=== PATIENT | female | born 1945 | race Caucasian/White ===

== ENCOUNTER 2017-01-24 12:57 | Inpatient (IN) | payer MEDICARE ==
[~2017-01-24] VITALS: Ht 157.5 cm; Wt 61.1 kg
[~2017-01-24 12:57] MED LIST: /MIRT30TA PO; /TIOT18INH; ACET50TA PO; ACIP20TA PO; ADVAIR; ALBU0.084 INH; BROV15NE INH; BUDE0.5S6 INH; BUSP10TA PO; BUSP15TA; BUSP30TA PO; CART120C PO; CEFT500T PO; COLA100C2; DOXE150C7 PO; HUMARA IV; HYDR200T3 PO; LASI40TA PO; LASIX PO; MELOXICAN PO; NORC5TAB PO; PARO40TA2 PO; PAXI30TA; PAXI40TA2 PO; PLAQ200T PO; PRED10TA2 PO; PRED20TA PO; PRIMI25TA; PRIMPOW10 PO; PULM1SUS INH; RECLAST; SIMV40TA2 PO; SPIR1CAP INH; SPIRIVA INH; TOPI100T; TYLE325T5 PO; VICO5TAB; VICO5TAB16 PO; VITAD1000T PO; XANA0.25 PO; ZOCO40TA; ZOCO40TA PO; [UNRECOGNIZED DRUG - OTHER] NEB; [UNRECOGNIZED DRUG - REMARK]; plaquenil PO; proventil neb INH; reclast
[2017-01-24] MEDS ORDERED: ALBU83IN (13:13)
[2017-01-24] MEDS ORDERED: PRED10TA (13:13)
[2017-01-24] MEDS ORDERED: MAG SULF 1GM/100ML (MAG RUN) 1 GM in APPROPRIATE DILUENT 1 EA IV ONE (13:15)
[2017-01-24] MEDS ORDERED: methylPREDNISolone INJ 125 MG/2 ML VIAL (J2930) IV ONE (13:15)
[2017-01-24 13:26] LABS: ABG BASE EXCESS 3.6 (-2.0-2.0); ABG HCO3 29.1 MEQ/L (22.0-26.0); ABG PARTIAL PRESSURE O2 138.9 mmHg (75.0-100.0); ABG STANDARD HCO3 27.7 MEQ/L (22.0-26.0); ABG TOTAL CO2 30.5 MEQ/L (23.0-31.0); ABG pH (ARTERIAL) 7.409 UNITS (7.350-7.450)
[2017-01-24 13:27] LABS: BASO % 0.4 % (0.0-1.0); EOS # 0.1 K/mm3 (0.0-0.50); EOS % 0.8 % (0.0-3.0); LARGE UNSTAINED CELL # 0.1 K/mm3 (0.0-0.4); LARGE UNSTAINED CELL % 0.6 % (0.0-4.0); LYMPH # 0.6 K/mm3 (1.5-4.5); MEAN CORPUSCULAR VOLUME 90.9 fl (80.0-96.0); MONO # 0.5 K/mm3 (0.0-0.8); MONO % 3.8 % (0.0-5.0); NEUTROPHILS # 11.1 K/mm3 (1.8-7.7); NEUTROPHILS % 89.4 % (36.0-66.0); PLATELET COUNT, AUTOMATED 255 k/mm3 (150-450); RED CELL DISTRIBUTION WIDTH 13.5 % (11.5-14.5); WHITE BLOOD COUNT 12.4 K/mm3 (4.0-10.0)
[2017-01-24] MEDS: ALBUTEROL SULFATE 2.5 MG/0.5 ML INH NEB SOLN NEB PRN ×3 (13:27→13:55)
--- NOTE | 2017-01-24 13:38 | REP ---
Chest one-view HISTORY: Shortness of breath Comparison: 03/01/2015 The lungs are clear. The heart is normal in size. The pulmonary vasculature is normal in appearance. Impression: No acute disease. Signed by Jigar Garay MD 01/24/2017 01:30 P
[2017-01-24 13:48] LABS: ALBUMIN 3.2 GM/DL (3.2-5.2); ALBUMIN/GLOBULIN RATIO 0.86 (1.00-1.93); ALKALINE PHOSPHATASE 117 U/L (45-117); ALT/SGPT 40 U/L (12-78); ANION GAP 3 MEQ/L (8-16); AST/SGOT 26 U/L (15-37); BILIRUBIN,DIRECT < 0.1 MG/DL (0.0-0.2); BILIRUBIN,TOTAL 0.3 MG/DL (0.2-1.0); BLOOD UREA NITROGEN 15 MG/DL (7-18); CALCIUM LEVEL 8.8 MG/DL (8.8-10.2); CARBON DIOXIDE LEVEL 33 MEQ/L (21-32); CHLORIDE LEVEL 102 MEQ/L (98-107); CREATININE FOR GFR 0.96 MG/DL (0.55-1.02); GLOMERULAR FILTRATION RATE > 60.0 (>39); GLUCOSE, FASTING 120 MG/DL (83-110); POTASSIUM SERUM 4.2 MEQ/L (3.5-5.1); SODIUM LEVEL 138 MEQ/L (136-145); TOTAL PROTEIN 6.9 GM/DL (6.4-8.2)
[2017-01-24] MEDS: IPRATROPIUM 0.5MG/ALBUTEROL 2.5MG INH SOL UD 3ML (DUONEB)(J7620) NEB SCH ×2 (14:00→19:28)
--- NOTE | 2017-01-24 14:33 | ECGEPIP ---
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
[2017-01-24] MEDS ORDERED: ALB2.5NEB INH (15:01)
[2017-01-24] MEDS ORDERED: PRED10TA PO (15:06)
[2017-01-24] MEDS ORDERED: PARO40TA87 PO (15:07)
[2017-01-24] MEDS ORDERED: BUSP15TA47 PO (15:08)
[2017-01-24] MEDS ORDERED: ONDANSETRON 4MG/2ML VIAL (J2405) IV PRN (15:30)
[2017-01-24] MEDS ORDERED: ONDANSETRON 4 MG TAB (S0181) PO PRN (15:30)
--- NOTE | 2017-01-24 15:46 | HPEPDOC ---
Medical History and Physical Date of Admission Jan 24, 2017 at 15:25 History and Physical HISTORY AND PHYSICAL Date of admission: 01/24/2017 PCP: Dr. Duarte Chief complaint: Cough and shortness of breath HPI: 70-year-old female with COPD on 2 L home O2, rheumatoid arthritis, depression, hyperlipidemia who presented to the emergency department secondary to several days of cough and increased shortness of breath. She states she is usually on 2 L of oxygen at home, but when she started feeling short of breath, she increased to 4 L, but this did not help. She also states that she used her nebulizers at home, which helped a little. She denies any recent upper respiratory illnesses. She states that as the days progressed, she was able to be less and less active secondary to shortness of breath, so she thought she should come to the ED. She has not seen her primary physician recently. Past medical history: COPD on 2 L home O2, rheumatoid arthritis, depression, hyperlipidemia Past surgical history: Hysterectomy, 2, shoulder surgery for disc disease in her neck, cerebral aneurysm repair Family history: CHF, diabetes mellitus type 2 Social history: The patient denies any alcohol or drug use. She currently lives with her sister. She continues to smoke half a pack per day, states that although she has tried Chantix and spoken with many physicians, she has been unable to quit. I did spend greater than 3 minutes discussing smoking cessation , including the risks of continuing to do so and the benefits of quitting, as well as possible avenues to do so. Allergies: Latex, oxycodone Review of systems: General: Positive for chills, negative for fever Eyes: Negative for vision changes and ocular discharge ENT: Positive for sore throat, negative for nosebleed Cardiovascular: Negative for chest pain and palpitations Respiratory: Positive for cough, shortness of breath, wheezing GI: Negative for nausea, vomiting, diarrhea, constipation Musculoskeletal: Positive for neck and back pain Skin: Negative for rash Neuro: Positive for headache, negative for dizziness. The patient reports numbness and tingling in an ulnar distribution on her right hand that has been present for several months. Psych: Negative for depression and suicidal ideation Endocrine: Positive for polyuria : Negative for dysuria Heme: Negative for bleeding Home meds: See below Physical exam: Vital signs: Vital Sign - Last 24 Hours 01/24/17 01/24/17 01/24/1701/24/17 12:58 13:00 13:36 13:48 Temp 97.8 Pulse 126 100 Resp 22 B/P (MAP) 117/69 (85) 172/84 (113) Pulse Ox 87 O2 Delivery Nasal Cannula O2 Flow Rate 2.0 01/24/17 01/24/17 01/24/17 01/24/17 13:48 13:50 14:27 14:42 Pulse 111 110 111 110 Resp 36 36 B/P (MAP) 118/63 (81) Pulse Ox 96 94 94 O2 Delivery Venturi Mask Venturi Mask Venturi Mask O2 Flow Rate 15.0 12.0 12.0 FiO2 60 35 35 Gen.: awake, alert, no acute distress Eyes: Extraocular movements intact, normal sclera ENT: Moist mucous membranes Cardiovascular: tachycardic but regular rhythm Lungs: diffuse rhonchi in all lung argueta with prolonged expiration and use of accessory muscles Abdomen: Soft, NT/ND, normal BS Musculoskeletal: normal range of motion Extremities: No peripheral edema Neuro: alert and oriented 3, normal speech, no focal deficits Psych: Normal mood with congruent affect Labs and radiology: See below WBC 12.4 CMP, troponin, BNP, ABG, chest x-ray are all unremarkable Assessment and plan: 70-year-old female with COPD on 2 L home O2, rheumatoid arthritis, depression, hyperlipidemia who presented to the emergency department secondary to several days of cough and increased shortness of breath and is admitted with acute on chronic hypoxic respiratory failure secondary to a COPD exacerbation. 1. Acute on chronic hypoxic respiratory failure: The patient usually uses 2 L of oxygen at home, but she is currently requiring 12 L Ventimask. We will continue to supplement oxygen and to treat the underlying cause. 2. COPD exacerbation: We'll start the patient on Solu-Medrol, Levaquin, and scheduled and as needed DuoNeb's. We'll continue her home Pulmicort and hold her home prednisone. We did not have Brovana on formulary, so we'll substitute Perforomist for her home Brovana. 3. Tobacco abuse: The patient and I spent greater than 3 minutes discussing tobacco cessation. At the moment, she continues to smoke at least half a pack per day. 4. Rheumatoid arthritis: Since the patient is on Solu-Medrol for COPD exacerbation, we will hold her home prednisone. 5. Depression: Continue home Paxil and BuSpar. 6. Hyperlipidemia: Continue home statin. DVT prophylaxis: Lovenox Dispo: admit as an inpatient on the service of Dr. Vazquez CODE STATUS: Full code Vital Signs Vital Signs Date Time Temp Pulse Resp B/P (MAP) Pulse Ox O2 Delivery O2 Flow Rate FiO2 01/24/17 14:42 110 36 94 Venturi Mask 12.0 35 01/24/17 13:50 118/63 (81) 01/24/17 12:58 97.8 Laboratory Data Labs 24H Laboratory Tests 2 01/24/17 13:12: White Blood Count 12.4H, Red Blood Count 4.70, Hemoglobin 14.1, Hematocrit 42.7 , Mean Corpuscular Volume 90.9, Mean Corpuscular Hemoglobin 30.0, Mean Corpuscular Hemoglobin Concent 33.0, Red Cell Distribution Width 13.5, Platelet Count 255, Neutrophils (%) (Auto) 89.4H, Lymphocytes (%) (Auto) 5.0L, Monocytes (%) (Auto) 3.8, Eosinophils (%) (Auto) 0.8, Basophils (%) (Auto) 0.4, Neutrophils # (Auto) 11.1H, Lymphocytes # (Auto) 0.6L, Monocytes # (Auto) 0.5, Eosinophils # (Auto) 0.1, Basophils # (Auto) 0.0, Large Unclassified Cells % 0.6 , Large Unclassified Cells # 0.1, Anion Gap 3L, Glomerular Filtration Rate > 60.0, Calcium Level 8.8, Aspartate Amino Transf (AST/SGOT) 26, Alanine Aminotransferase (ALT/SGPT) 40, Alkaline Phosphatase 117, Total Bilirubin 0.3, Direct Bilirubin < 0.1, Total Creatine Kinase 103, Creatine Kinase MB 2.7, Creatine Kinase MB Relative Index 2.62, Troponin I < 0.02, B-Type Natriuretic Peptide 18.2, Total Protein 6.9, Albumin 3.2, Albumin/Globulin Ratio 0.86L 01/24/17 13:22: Blood Gas Bicarbonate Standard 27.7H, Arterial Blood pH 7.409, Arterial Blood Partial Pressure CO2 47.0H, Arterial Blood Partial Pressure O2 138.9H, Arterial Blood Total CO2 30.5, Arterial Blood HCO3 29.1H, Arterial Blood Base Excess 3.6H , Arterial Blood Oxygen Saturation 98.8 CBC/BMP Laboratory Tests 01/24/17 13:12 Red Blood Count 4.70, Mean Corpuscular Volume 90.9, Mean Corpuscular Hemoglobin 30.0, Mean Corpuscular Hemoglobin Concent 33.0, Red Cell Distribution Width 13.5 , Neutrophils (%) (Auto) 89.4 H, Lymphocytes (%) (Auto) 5.0 L, Monocytes (%) ( Auto) 3.8, Eosinophils (%) (Auto) 0.8, Basophils (%) (Auto) 0.4, Neutrophils # ( Auto) 11.1 H, Lymphocytes # (Auto) 0.6 L, Monocytes # (Auto) 0.5, Eosinophils # (Auto) 0.1, Basophils # (Auto) 0.0 Home Medications Scheduled Arformoterol Tartrate (Brovana) 15 Mcg/2 Ml Neb, 15 MCG INH BID MIX WITH BUDESONIDE Budesonide (Budesonide) 0.5 Mg/2 Ml Neb, 0.5 MG INH BID MIX WITH BROVANA Buspirone HCl (Buspirone HCl) 15 Mg Tab, 15 MG PO BID Diltiazem HCl (Cartia Xt) 120 Mg Cap, 120 MG PO DAILY Furosemide (Lasix) 40 Mg Tab, 40 MG PO Q3RD Paroxetine Hydrochloride (Paroxetine) 40 Mg Tab, 40 MG PO DAILY Prednisone (Prednisone) 10 Mg Tab, 10 MG PO DAILY Simvastatin - High Dose (Simvastatin) 40 Mg Tab, 40 MG PO QHS Scheduled PRN Acetaminophen (Tylenol) 325 Mg Tab, 650 MG PO Q4H PRN for PAIN Albuterol Sulfate (Albuterol Sulfate) 2.5 Mg/0.5 Ml Neb, 2.5 MG INH Q2H PRN for SHORTNESS OF BREATH Allergies Coded Allergies: Latex (Verified Allergy, Mild, RASH, 12/12/12) Oxycodone (Verified Allergy, Mild, RASH, 12/12/12) DAVID EDMONDS Jan 24, 2017 15:46
[2017-01-24] MEDS: IPRATROPIUM 0.5MG/ALBUTEROL 2.5MG INH SOL UD 3ML (DUONEB)(J7620) NEB PRN ×2 (16:34→21:47)
[2017-01-24] MEDS: methylPREDNISolone INJ 125 MG/2 ML VIAL (J2930) IV SCH ×2 (16:45→23:31)
[2017-01-24] MEDS: LevoFLOXacin IV 750 MG in APPROPRIATE DILUENT 1 EA IV SCH (16:45)
[2017-01-24] MEDS: ENOXAPARIN 40 MG/0.4 ML SYRINGE (J1650) SC SCH (18:54)
[2017-01-24] MEDS: BUDESONIDE 0.5 MG/2 ML INHALATION SUSPENSION INH SCH ×2 (19:29→21:48)
[2017-01-24] MEDS: FORMOTEROL FUMARATE 20 MCG/2 ML INHALATION SOLUTION (PERFOROMIST) INH SCH (19:29)
[2017-01-24 19:40] VITALS: BP 136/62
[2017-01-24] MEDS: busPIRone 5 MG TAB PO SCH (20:26)
[2017-01-24] MEDS: SIMVASTATIN 40 MG TAB PO SCH (20:26)
[2017-01-24 20:55] VITALS: BP 138/66
[2017-01-24] MEDS: ACETAMINOPHEN TAB 650MG DOSE (2X325MG) PO PRN (23:31)
[2017-01-25] VITALS (10 sets, daily range): BP systolic 120–151; BP diastolic 60–83; O2SAT 93
[2017-01-25] MEDS: IPRATROPIUM 0.5MG/ALBUTEROL 2.5MG INH SOL UD 3ML (DUONEB)(J7620) NEB SCH ×4 (02:11→19:30)
[2017-01-25 05:33] LABS: BASO % 0.1 % (0.0-1.0); EOS % 0.1 % (0.0-3.0); LARGE UNSTAINED CELL # 0.1 K/mm3 (0.0-0.4); LARGE UNSTAINED CELL % 0.8 % (0.0-4.0); LYMPH # 0.4 K/mm3 (1.5-4.5); LYMPH % 4.7 % (24.0-44.0); MEAN CORPUSCULAR HEMOGLOBIN 30.1 pg (27.0-33.0); MEAN CORPUSCULAR HGB CONC 32.8 g/dl (32.0-36.5); MEAN CORPUSCULAR VOLUME 91.7 fl (80.0-96.0); MONO # 0.3 K/mm3 (0.0-0.8); MONO % 3.4 % (0.0-5.0); NEUTROPHILS # 7.3 K/mm3 (1.8-7.7); NEUTROPHILS % 90.9 % (36.0-66.0); PLATELET COUNT, AUTOMATED 235 k/mm3 (150-450); RED CELL DISTRIBUTION WIDTH 13.7 % (11.5-14.5)
[2017-01-25 05:46] LABS: CALCIUM LEVEL 8.5 MG/DL (8.8-10.2); CREATININE FOR GFR 1.04 MG/DL (0.55-1.02); GLOMERULAR FILTRATION RATE 55.6 (>39); MAGNESIUM LEVEL 2.6 MG/DL (1.8-2.4); POTASSIUM SERUM 4.2 MEQ/L (3.5-5.1)
[2017-01-25] MEDS: BUDESONIDE 0.5 MG/2 ML INHALATION SUSPENSION INH SCH ×2 (07:31→19:29)
[2017-01-25] MEDS: FORMOTEROL FUMARATE 20 MCG/2 ML INHALATION SOLUTION (PERFOROMIST) INH SCH ×2 (07:31→19:29)
[2017-01-25] MEDS: methylPREDNISolone INJ 125 MG/2 ML VIAL (J2930) IV SCH (08:09)
--- NOTE | 2017-01-25 08:30 | ECGEPIP ---
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
[2017-01-25] MEDS ORDERED: FUROSEMIDE 40 MG TAB PO SCH (09:00)
[2017-01-25] MEDS: PARoxetine 20 MG TAB PO SCH (09:50)
[2017-01-25] MEDS: busPIRone 5 MG TAB PO SCH ×2 (09:52→19:57)
[2017-01-25] MEDS: IPRATROPIUM 0.5MG/ALBUTEROL 2.5MG INH SOL UD 3ML (DUONEB)(J7620) NEB PRN (11:56)
[2017-01-25] MEDS: ACETAMINOPHEN TAB 650MG DOSE (2X325MG) PO PRN ×2 (13:41→18:25)
--- NOTE | 2017-01-25 14:26 | IPNPDOC ---
Subjective Date Seen The patient was seen on 01/25/17. Subjective Chief Complaint/HPI The patient is a 71-year-old female admitted with a reason for visit of Copd Exaceration. General: Denies: Chills, Night Sweats Constitutional: Denies: Chills, Fever Eyes: Denies: Pain, Vision change ENT: Denies: Head Aches, Ear Pain Skin: Denies: Rash, Lesions Pulmonary: Reports: Dyspnea, Cough Cardiovascular: Denies: Chest Pain, Palpitations Gastrointestinal: Denies: Nausea, Vomiting, Abdominal Pain Genitourinary: Denies: Dysuria, Frequency Hematologic: Denies: Bruising, Bleeding Excessively Objective Physical Examination General Exam: Positive: Alert, Cooperative, No Acute Distress ENT Exam: Positive: Atraumatic, Mucous membr. moist/pink Neck Exam: Negative: JVD Chest Exam: Positive: Clear to auscultation, Normal air movement Heart Exam: Positive: Tachycardic, Normal S1, Normal S2 Abdomen Exam: Positive: Soft, Negative: Tenderness Extremity Exam: Negative: Tenderness, Swelling Psych Exam: Positive: Oriented x 3 Assessment /Plan Plan/VTE VTE Prophylaxis Ordered?: Yes Plan COPD exacerbation CXR with no acute findings Cont IV Solumedrol--we will down taper this today, and transition to PO Steroids tomorrow pending clinical improvement Respiratory Panel pending Cont LevBaudilio ayalab's prn Cont Pulmicort, Perforomist We will continue to monitor respiratory status at this time Acute on Chronic Hypoxic Respiratory Failure 2/2 Above Supplemental Oxygen down-titrated from 12L via Venti Mask to 2L via Nasal Cannula (Which is her baseline) We will continue to monitor her respiratory status Tobacco abuse Continues to smoke at least half a pack per day. Counseled on cessation Rheumatoid arthritis Home dose of prednisone as she is currently on IV Solumedrol Depression Continue home Paxil and BuSpar. Hyperlipidemia Continue home statin. DVT prophylaxis Lovenox SC Dispo-anticipate discharge in the next 24-48 hours pending clinical improvement. VS, I&O, 24H, Fishbone Vital Signs/I&O Vital Signs Date Time Temp Pulse Resp B/P (MAP) Pulse Ox O2 Delivery O2 Flow Rate FiO2 01/25/17 13:50 Nasal Cannula 2.0 01/25/17 13:01 32 93 01/25/17 12:00 97.9 116 142/83 (102) 01/25/17 02:02 35 I&O- Last 24 Hours up to 6 AM 01/25/17 06:00 Intake Total 200 ml Output Total 150 ml Balance 50 ml Laboratory Data 24H LABS Laboratory Tests 2 01/25/17 04:12: White Blood Count 8.0, Red Blood Count 4.10, Hemoglobin 12.4, Hematocrit 37.6, Mean Corpuscular Volume 91.7, Mean Corpuscular Hemoglobin 30.1, Mean Corpuscular Hemoglobin Concent 32.8, Red Cell Distribution Width 13.7, Platelet Count 235, Neutrophils (%) (Auto) 90.9H, Lymphocytes (%) (Auto) 4.7L, Monocytes (%) (Auto) 3.4, Eosinophils (%) (Auto) 0.1, Basophils (%) (Auto) 0.1, Neutrophils # (Auto) 7.3, Lymphocytes # (Auto) 0.4L, Monocytes # (Auto) 0.3, Eosinophils # (Auto) 0.0, Basophils # (Auto) 0.0, Large Unclassified Cells % 0.8 , Large Unclassified Cells # 0.1, Anion Gap 7L, Glomerular Filtration Rate 55.6 , Blood Urea Nitrogen 17, Creatinine 1.04H, Sodium Level 139, Potassium Level 4.2, Chloride Level 102, Carbon Dioxide Level 30, Calcium Level 8.5L, Magnesium Level 2.6H CBC/BMP Laboratory Tests 01/25/17 04:12 Red Blood Count 4.10, Mean Corpuscular Volume 91.7, Mean Corpuscular Hemoglobin 30.1, Mean Corpuscular Hemoglobin Concent 32.8, Red Cell Distribution Width 13.7 , Neutrophils (%) (Auto) 90.9 H, Lymphocytes (%) (Auto) 4.7 L, Monocytes (%) ( Auto) 3.4, Eosinophils (%) (Auto) 0.1, Basophils (%) (Auto) 0.1, Neutrophils # ( Auto) 7.3, Lymphocytes # (Auto) 0.4 L, Monocytes # (Auto) 0.3, Eosinophils # ( Auto) 0.0, Basophils # (Auto) 0.0, Calcium Level 8.5 L BETSY SHEETS MD Jan 25, 2017 14:26
[2017-01-25] MEDS: ENOXAPARIN 40 MG/0.4 ML SYRINGE (J1650) SC SCH (18:25)
[2017-01-25] MEDS: LevoFLOXacin IV 750 MG in APPROPRIATE DILUENT 1 EA IV SCH (18:46)
[2017-01-25] MEDS: methylPREDNISolone INJ 40 MG/1 ML VIAL (J2920) IV SCH (19:57)
[2017-01-25] MEDS: SIMVASTATIN 40 MG TAB PO SCH (19:58)
[2017-01-25] MEDS ORDERED: IPRATROPIUM 0.02% SOLN 0.5MG/2.5 ML NEB INH PRN (23:30)
[2017-01-25] MEDS ORDERED: LEVALBUTEROL 1.25 MG/0.5 ML CONCENTRATE NEB INH PRN (23:30)
[2017-01-26 06:00] VITALS: BP 115/69
[2017-01-26 06:17] LABS: BASO % 0.1 % (0.0-1.0); EOS % 0.1 % (0.0-3.0); LARGE UNSTAINED CELL # 0.1 K/mm3 (0.0-0.4); LARGE UNSTAINED CELL % 0.3 % (0.0-4.0); LYMPH # 0.7 K/mm3 (1.5-4.5); LYMPH % 3.8 % (24.0-44.0); MEAN CORPUSCULAR HEMOGLOBIN 29.7 pg (27.0-33.0); MEAN CORPUSCULAR HGB CONC 33.1 g/dl (32.0-36.5); MEAN CORPUSCULAR VOLUME 89.7 fl (80.0-96.0); MONO # 0.8 K/mm3 (0.0-0.8); MONO % 4.8 % (0.0-5.0); NEUTROPHILS # 14.7 K/mm3 (1.8-7.7); NEUTROPHILS % 90.9 % (36.0-66.0); PLATELET COUNT, AUTOMATED 273 k/mm3 (150-450); RED CELL DISTRIBUTION WIDTH 13.7 % (11.5-14.5); WHITE BLOOD COUNT 16.1 K/mm3 (4.0-10.0)
[2017-01-26 06:32] LABS: CALCIUM LEVEL 8.3 MG/DL (8.8-10.2); CREATININE FOR GFR 1.14 MG/DL (0.55-1.02); MAGNESIUM LEVEL 2.4 MG/DL (1.8-2.4); POTASSIUM SERUM 4.3 MEQ/L (3.5-5.1)
[2017-01-26] MEDS: LEVALBUTEROL 1.25 MG/0.5 ML CONCENTRATE NEB INH SCH ×2 (07:26→11:25)
[2017-01-26] MEDS: FORMOTEROL FUMARATE 20 MCG/2 ML INHALATION SOLUTION (PERFOROMIST) INH SCH (07:26)
[2017-01-26] MEDS: BUDESONIDE 0.5 MG/2 ML INHALATION SUSPENSION INH SCH (07:26)
[2017-01-26] MEDS: IPRATROPIUM 0.02% SOLN 0.5MG/2.5 ML NEB INH SCH ×2 (07:26→11:25)
[2017-01-26] MEDS: methylPREDNISolone INJ 40 MG/1 ML VIAL (J2920) IV SCH (08:06)
[2017-01-26 08:07] VITALS: BP 126/71
[2017-01-26] MEDS: busPIRone 5 MG TAB PO SCH (08:07)
[2017-01-26] MEDS: PARoxetine 20 MG TAB PO SCH (08:07)
[2017-01-26] MEDS ORDERED: PRED10TA PO (10:12)
[2017-01-26] MEDS ORDERED: MOXI1TAB PO (10:34)
--- NOTE | 2017-01-26 12:40 | DSES ---
DATE OF ADMISSION: 01/24/2017 DATE OF DISCHARGE: SPECIALISTS INVOLVED IN CARE: None. COMPLICATIONS DURING STAY: None. PROCEDURES PERFORMED DURING STAY: None. DISCHARGE DIAGNOSES: 1. Chronic obstructive pulmonary disease (COPD) exacerbation. 2. Acute on chronic hypoxic respiratory failure. 3. Tobacco use. 4. Rheumatoid arthritis. 5. Depression. 6. Hyperlipidemia. SUMMARY OF HOSPITALIZATION: This is a 70-year-old with a history of COPD on 2 liters of home oxygen, history of rheumatoid arthritis, depression, hyperlipidemia, who presented to the emergency department secondary to several days of cough, increased shortness of breath. Chronically on 2 liters of oxygen at home, increased that to 4 and has been less active due to shortness of breath. She came to visit the emergency department and was admitted to the hospitalist service. She was treated with supplemental oxygen. She was requiring much more than baseline. Steroids and aggressive pulmonary toilet. She did well during her stay. She improved rapidly and had returned to her baseline. She was treated with empiric antibiotics, although respiratory panel was negative and no sputum was obtained. On the day of discharge, she was feeling well. She is tolerating a diet. She still has a cough, but is feeling much better. Temperature is 97, pulse 100, respiratory rate 20, blood pressure 126/71, 93% on 2 liters. Input and output notable for a negative fluid balance of -1130. She is awake and alert. Breathing is symmetrical. I:E ratio is 1:3. No wheezes. Breathing is symmetrical and rested. Speaking in complete sentences. No accessory muscle use. CARDIAC: Normal S1, S2. Tachycardic on my examination. ABDOMEN: Soft, doughy, nontender. White cell count 16.1, presumably related to steroids, BUN 29, creatinine 1.14, slightly above her baseline. Chest x-ray during her stay showed no acute disease. DISCHARGE INSTRUCTIONS: Include the following: Followup with Dr. Farris on 02/05/2017 at 1:15 p.m. Diet and activity as tolerated. Continue with: - moxifloxacin 400 mg by mouth daily for five tablets. She had been on Levaquin as an inpatient but this is not covered by her insurance as an outpatient. - prednisone tapering dose, written over the course of 8 days and to taper down to her home dose of prednisone thereafter. - Tylenol as needed every 4 hours for pain - albuterol every 2 hours as needed for shortness of breath - Brovana twice a day - budesonide twice a day - BuSpar 15 mg by mouth twice a day - diltiazem XT 120 mg by mouth daily - Lasix 40 mg by mouth every third day - Paxil 40 mg by mouth daily - prednisone 10 mg by mouth daily - simvastatin 40 mg by mouth daily at bedtime I did write for her home dose and the tapering dose concurrently so that she will be able to continue her home dose at the end of the taper without complication. It would be reasonable to pursue outpatient BMP with results to Dr. Farris. That could be done on 01/28/2017.
--- NOTE | 2017-01-26 16:11 | ECGEPIP ---
Stationary ECG Study 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
== END 2017-01-26 13:17 | disposition home or self-care (01) | DRG 189 ==
LOC: M ED 13:32 → M ED INP 15:25 → M PCU 20:47 → M MSPAV 01-25 13:14
PROVIDERS: ADMIT Hospitalist; ATTEND Internal Medicine
DX: J96.21 Acute and chronic respiratory failure with hypoxia (principal); J44.1 Chronic obstructive pulmonary disease with (acute) exacerbation; F17.200 Nicotine dependence, unspecified, uncomplicated; E78.5 Hyperlipidemia, unspecified; F32.9 Major depressive disorder, single episode, unspecified; M06.9 Rheumatoid arthritis, unspecified; Z79.899 Other long term (current) drug therapy; Z88.5 Allergy status to narcotic agent; Z91.040 Latex allergy status

== ENCOUNTER → 2017-03-24 | Outpatient (REF) | payer MEDICARE ==
[~2017-03-24] MED LIST changes: +ALB2.5NEB INH; +ALBU83IN; +ALPR0.25 PO; +AVEL1TAB3 PO; +BUSP15TA47 PO; +MOXI1TAB PO; +PARO40TA3 PO; +PRED10TA2; +VARE1TA PO
[2017-03-24 15:58] LABS: MEAN CORPUSCULAR HEMOGLOBIN 30.6 pg (27.0-33.0); MEAN CORPUSCULAR HGB CONC 33.8 g/dl (32.0-36.5); MEAN CORPUSCULAR VOLUME 90.5 fl (80.0-96.0); RED CELL DISTRIBUTION WIDTH 13.5 % (11.5-14.5); WHITE BLOOD COUNT 14.1 K/mm3 (4.0-10.0)
[2017-03-24 16:09] LABS: ALBUMIN 3.5 GM/DL (3.2-5.2); ALBUMIN/GLOBULIN RATIO 1.21 (1.00-1.93); BILIRUBIN,TOTAL 0.4 MG/DL (0.2-1.0); CREATININE FOR GFR 1.02 MG/DL (0.55-1.02); GLOMERULAR FILTRATION RATE 56.9 (>39); MAGNESIUM LEVEL 2.2 MG/DL (1.8-2.4); POTASSIUM SERUM 4.7 MEQ/L (3.5-5.1); TOTAL PROTEIN 6.4 GM/DL (6.4-8.2)
== END ==
LOC: M SFHCPLAZ 12:50
PROVIDERS: ATTEND Internal Medicine
DX: J44.9 Chronic obstructive pulmonary disease, unspecified (principal); I27.81 Cor pulmonale (chronic); E78.00 Pure hypercholesterolemia, unspecified

== ENCOUNTER 2017-04-14 08:38 | Day surgery (SDC) | payer MEDICARE ==
[~2017-04-14] VITALS: Ht 162.6 cm; Wt 66.7 kg
[~2017-04-14 08:38] MED LIST changes: -AVEL1TAB3 PO; +BSS with VANC/TOB/EPI for EYE CASES IR ONE; +CYCLOPENTOLATE 2% OPHTH SOLN 2ML BTL OD ONE; +HEALON DUET (HEALON 10MG/ML 0.55ML & HEALON ENDOCOAT 30MG/ML 0.85ML) As Ordered ONE; +LIDOCAINE 1% SDV 5 ML VIAL As Ordered ONE; +LIDOCAINE 3.5 % 1ML OPHTH TOPICAL GEL OU ONE; +OFLOXACIN 0.3 % (OCUFLOX) OPTH SOL 5ML OD ONE; +PHENYLEPHRINE 2.5% OPHTH SOL 2ML OD ONE; +POVIDONE-IODINE 5% OPHTH PREP SOL 30ML As Ordered ONE; +TRIAMCINOLONE PRES FR 40 MG/ML 1ML(TRIESENCE)(OR EYE ONLY)(J3300 PER 1MG) As Ordered ONE; +TROPICAMIDE 1% OPHTH SOLN 2ML OD ONE
[2017-04-14] MEDS ORDERED: LR 500 ML IV ONE (09:00)
[2017-04-14] MEDS ORDERED: LIDOCAINE 1% SDV 5 ML VIAL SQ ONE (09:00)
[2017-04-14] MEDS ORDERED: MIDAZOLAM INJ 2 MG/2 ML VIAL (J2250) As Ordered ONE (09:32)
[2017-04-14] MEDS ORDERED: fentaNYL 100 MCG/2 ML INJECTION (J3010) As Ordered ONE (09:32)
[2017-04-14] MEDS ORDERED: CEFUROXIME 1MG/0.1ML INTRACAMERAL INJ As Ordered ONE (09:41)
[2017-04-14] MEDS ORDERED: TETRACAINE 0.5% OPHTH SOLN 4ML As Ordered ONE (09:54)
[2017-04-14 10:30] VITALS: BP 128/71
== END 2017-04-14 10:48 | disposition home or self-care (01) ==
LOC: M SDC 08:38
PROVIDERS: ATTEND Ophthalmology
DX: H25.9 Unspecified age-related cataract (principal); I10 Essential (primary) hypertension; E78.5 Hyperlipidemia, unspecified; F41.9 Anxiety disorder, unspecified; F32.9 Major depressive disorder, single episode, unspecified; J44.9 Chronic obstructive pulmonary disease, unspecified; Z99.81 Dependence on supplemental oxygen; Z87.891 Personal history of nicotine dependence; Z91.040 Latex allergy status; Z88.5 Allergy status to narcotic agent
CPT/HCPCS: 66984; 67515; J2250; J3010; J3300; V2632

== ENCOUNTER 2017-04-19 13:59 | Emergency (ER) | payer MEDICARE ==
[~2017-04-19] VITALS: Ht 157.5 cm; Wt 62.3 kg
[~2017-04-19 13:59] MED LIST changes: -BSS with VANC/TOB/EPI for EYE CASES IR ONE; -CYCLOPENTOLATE 2% OPHTH SOLN 2ML BTL OD ONE; -HEALON DUET (HEALON 10MG/ML 0.55ML & HEALON ENDOCOAT 30MG/ML 0.85ML) As Ordered ONE; -LIDOCAINE 1% SDV 5 ML VIAL As Ordered ONE; -LIDOCAINE 3.5 % 1ML OPHTH TOPICAL GEL OU ONE; -OFLOXACIN 0.3 % (OCUFLOX) OPTH SOL 5ML OD ONE; -PHENYLEPHRINE 2.5% OPHTH SOL 2ML OD ONE; -POVIDONE-IODINE 5% OPHTH PREP SOL 30ML As Ordered ONE; -TRIAMCINOLONE PRES FR 40 MG/ML 1ML(TRIESENCE)(OR EYE ONLY)(J3300 PER 1MG) As Ordered ONE; -TROPICAMIDE 1% OPHTH SOLN 2ML OD ONE
[2017-04-19] MEDS ORDERED: methylPREDNISolone INJ 125 MG/2 ML VIAL (J2930) IV ONE (15:30)
[2017-04-19] MEDS ORDERED: ALBUTEROL SULFATE 2.5 MG/0.5 ML INH NEB SOLN INH ONE (15:30)
[2017-04-19] MEDS ORDERED: IPRATROPIUM 0.5MG/ALBUTEROL 2.5MG INH SOL UD 3ML (DUONEB)(J7620) NEB ONE ×2 (15:30→17:15)
[2017-04-19 15:52] LABS: BASO % 0.3 % (0.0-1.0); EOS # 0.1 K/mm3 (0.0-0.50); EOS % 0.4 % (0.0-3.0); LARGE UNSTAINED CELL # 0.1 K/mm3 (0.0-0.4); LARGE UNSTAINED CELL % 0.7 % (0.0-4.0); LYMPH # 1.1 K/mm3 (1.5-4.5); LYMPH % 6.2 % (24.0-44.0); MEAN CORPUSCULAR HEMOGLOBIN 29.7 pg (27.0-33.0); MEAN CORPUSCULAR VOLUME 90.2 fl (80.0-96.0); MONO # 0.7 K/mm3 (0.0-0.8); MONO % 4.4 % (0.0-5.0); NEUTROPHILS # 13.5 K/mm3 (1.8-7.7); PLATELET COUNT, AUTOMATED 307 k/mm3 (150-450); RED CELL DISTRIBUTION WIDTH 13.4 % (11.5-14.5); WHITE BLOOD COUNT 15.3 K/mm3 (4.0-10.0)
[2017-04-19 15:59] LABS: INR 0.96
[2017-04-19 16:05] LABS: ALBUMIN 3.1 GM/DL (3.2-5.2); ALBUMIN/GLOBULIN RATIO 0.89 (1.00-1.93); ALKALINE PHOSPHATASE 84 U/L (45-117); ALT/SGPT 26 U/L (12-78); ANION GAP 2 MEQ/L (8-16); AST/SGOT 12 U/L (15-37); BILIRUBIN,DIRECT < 0.1 MG/DL (0.0-0.2); BILIRUBIN,TOTAL 0.3 MG/DL (0.2-1.0); BLOOD UREA NITROGEN 26 MG/DL (7-18); CALCIUM LEVEL 8.9 MG/DL (8.8-10.2); CARBON DIOXIDE LEVEL 37 MEQ/L (21-32); CHLORIDE LEVEL 99 MEQ/L (98-107); CREATININE FOR GFR 1.11 MG/DL (0.55-1.02); GLOMERULAR FILTRATION RATE 51.4 (>39); GLUCOSE, FASTING 107 MG/DL (83-110); POTASSIUM SERUM 4.8 MEQ/L (3.5-5.1); SODIUM LEVEL 138 MEQ/L (136-145); THYROXINE (T4) 7.1 UG/DL (4.5-12.0); TOTAL PROTEIN 6.6 GM/DL (6.4-8.2)
[2017-04-19 16:06] LABS: ABG BASE EXCESS 6.6 (-2.0-2.0); ABG HCO3 33.5 MEQ/L (22.0-26.0); ABG PARTIAL PRESSURE CO2 57.3 mmHg (35.0-45.0); ABG PARTIAL PRESSURE O2 90.1 mmHg (75.0-100.0); ABG STANDARD HCO3 30.5 MEQ/L (22.0-26.0); ABG TOTAL CO2 35.3 MEQ/L (23.0-31.0); ABG pH (ARTERIAL) 7.385 UNITS (7.350-7.450)
--- NOTE | 2017-04-19 16:41 | REP ---
Portable chest x-ray: Single view. History: Shortness of breath. Comparison study: 01/24/2017. Findings: EKG monitoring electrode is seen. The patient is status post ventral discectomy and cervical spine fusion plating. The lungs are somewhat hyperinflated but free of infiltrate. Pleural angles are sharp. Heart size is normal. Pulmonary vasculature is not increased. Impression: Hyperinflation. Otherwise no active disease. Status post cervical spine fusion plating. Signed by Deep Velasquez MD 04/19/2017 06:39 P
[2017-04-19] MEDS ORDERED: KETOROLAC 30 MG/ML VIAL (J1885) IV ONE (17:00)
[2017-04-19] MEDS ORDERED: ISOVUE-370 76% 100ML VIAL (Q9967) As Ordered ONE (17:02)
[2017-04-19] MEDS ORDERED: PRED20TA PO (17:43)
[2017-04-19] MEDS ORDERED: AVEL1TAB3 PO (17:44)
[2017-04-19] MEDS ORDERED: MOXIFLOXACIN 400 MG TAB PO ONE (17:45)
--- NOTE | 2017-04-19 17:55 | REP ---
CT pulmonary angiogram: With IV contrast. History: Left sided pleuritic chest pain. Comparison studies: Comparison chest x-ray is from this date. Comparison chest CT done without contrast is from February 20, 2015. Contrast dose: 75 cc's of Isovue [address] technique: Helical scanning is acquired and overlapping 1.5 mm and contiguous 3 mm axial images are reformatted. In addition, a 3-D work station is deployed to generate thick slab maximum intensity projection images in sagittal and coronal imaging projections. CT pulmonary angiographic findings: There is good opacification of the pulmonary arterial tree. There is no CT evidence of pulmonary embolism. The thoracic aorta enhances homogeneously and is normal in course and caliber. The maximum intensity projection images demonstrate no evidence of vessel cutoff or filling defect to suggest a pulmonary arterial thrombus. The patient is status post vertebroplasty in the mid thoracic spine and lower cervical spine fusion plating. No hilar or mediastinal mass or adenopathy is seen. No pleural or pericardial effusion is appreciated. No adrenal lesion is seen. There are granulomatous calcifications in the spleen. Lung window settings show granulomatous calcification in the right upper lobe posteriorly. There are emphysematous changes in the lower lobes and upper lobes bilaterally consistent with COPD. No pulmonary nodule or mass lesion is seen. There is evidence of bronchiectasis in the right lower lobe with some inspissated endobronchial secretions. There are multiple old healed left-sided posterior rib fractures and scattered anterior right-sided rib fractures are seen. Impression: 1. No CT evidence of pulmonary embolism. 2. Thoracic aorta shows some atherosclerotic change, but is otherwise unremarkable. 3. Evidence of COPD. 4. Bronchiectasis in the right lower lobe with some inspissated endobronchial secretions. Signed by Deep Velasquez MD 04/19/2017 06:40 P
[2017-04-19 18:01] VITALS: BP 122/68
--- NOTE | 2017-04-20 09:37 | ECGEPIP ---
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
== END 2017-04-19 18:02 | disposition home or self-care (01) ==
LOC: M ED 13:59
DX: J44.1 Chronic obstructive pulmonary disease with (acute) exacerbation (principal); J20.9 Acute bronchitis, unspecified; R09.1 Pleurisy; F41.9 Anxiety disorder, unspecified; F33.9 Major depressive disorder, recurrent, unspecified; Z88.5 Allergy status to narcotic agent; Z91.040 Latex allergy status; Z87.891 Personal history of nicotine dependence
CPT/HCPCS: 36415; 36600; 71010; 71275; 80048; 80076; 82550; 82553; 82803; 83605; 83880; 84436; 84443; 84484; 85025; 85379; 85610; 87040; 87804; 93005; 93041; 94640; 96374; 96375; 99284; J1885; J2930; Q9967

== ENCOUNTER 2017-05-05 10:16 | Day surgery (SDC) | payer MEDICARE ==
[~2017-05-05 10:16] MED LIST changes: +ACETAMINOPHEN 325 MG TAB PO PRN; +AVEL1TAB3 PO; +BSS with VANC/TOB/EPI for EYE CASES IR ONE; +CYCLOPENTOLATE 2% OPHTH SOLN 2ML BTL XX ONE; +HEALON DUET (HEALON 10MG/ML 0.55ML & HEALON ENDOCOAT 30MG/ML 0.85ML) As Ordered ONE; +LIDOCAINE 1% SDV 5 ML VIAL As Ordered ONE; +LIDOCAINE 3.5 % 1ML OPHTH TOPICAL GEL OU ONE; +MOXIFLOXACIN IN BSS 0.25MG/0.25ML INTRACAMERAL INJ (OR EYE ONLY)(J2280) As Ordered ONE; +OFLOXACIN 0.3 % (OCUFLOX) OPTH SOL 5ML XX ONE; +PHENYLEPHRINE 2.5% OPHTH SOL 2ML XX ONE; +POVIDONE-IODINE 5% OPHTH PREP SOL 30ML As Ordered ONE; +PROPARACAINE 0.5% OPHTH SOL 15ML XX PRN; +TRIAMCINOLONE PRES FR 40 MG/ML 1ML(TRIESENCE)(OR EYE ONLY)(J3300 PER 1MG) As Ordered ONE; +TROPICAMIDE 1% OPHTH SOLN 2ML XX ONE
[2017-05-05] MEDS ORDERED: LR 1,000 ML IV ONE (10:30)
[2017-05-05] MEDS ORDERED: MIDAZOLAM INJ 2 MG/2 ML VIAL (J2250) As Ordered ONE (14:39)
[2017-05-05] MEDS ORDERED: fentaNYL 100 MCG/2 ML INJECTION (J3010) As Ordered ONE (14:39)
[2017-05-05] MEDS ORDERED: POVIDONE-IODINE 5% OPHTH PREP SOL 30ML As Ordered ONE (15:32)
[2017-05-05] MEDS ORDERED: ACETYLCHOLINE OPHTH SOLN 1% 2ML (MIOCHOL-E) As Ordered ONE (15:53)
[2017-05-05] MEDS ORDERED: AcetaZOLAMIDE 500 MG ER CAP As Ordered ONE (16:14)
[2017-05-05 16:15] VITALS: BP 140/87
[2017-05-05] MEDS ORDERED: AcetaZOLAMIDE 500 MG ER CAP PO ONE (16:30)
[2017-05-05] MEDS ORDERED: KETOROLAC 0.5% OPHTH SOLN XX ONE (16:30)
[2017-05-05] MEDS ORDERED: TRIMETHOBENZAMIDE 300 MG CAP PO PRN (16:30)
--- NOTE | 2017-05-05 17:54 | RO ---
DATE OF PROCEDURE: 05/05/2017 PREPROCEDURE DIAGNOSIS: Cataract and miosis left eye. POSTPROCEDURE DIAGNOSIS: Cataract and miosis left eye. PROCEDURE: Phacoemulsification with intraocular lens implantation along with placement of Malyugin ring, 7 mm. SURGEON: Mirta Loredo MD APPLICATIONS SYSTEM ANALYST: None. COMPLICATIONS: None. DESCRIPTION OF PROCEDURE: The patient was brought to the operating room and laid in supine position. The eye was prepped and draped in a sterile fashion for ophthalmic surgery and a lid speculum was placed. [place] incision was made and EndoCoat was injected into the anterior chamber. Temporal clear corneal incision was then made with a 2.5 mm keratome. Malyugin ring, 7 mm, was then placed in the eye with the help of the turn supervisor. Pupil was dilated. Capsulorrhexis was then done followed by hydrodissection. Phacoemulsification was done in divide and conquer method within the capsular bag followed by aspiration of the cortical material. Healon was placed in the capsular bag and intraocular lens inserted. Hoya power 20 diopters. Malyugin ring was then removed with the help of the turn supervisor and Healon was aspirated. The wound was hydrated. Miochol was injected. Sub-tenon injection of triamcinolone and intracameral injection of moxifloxacin were given. Lid speculum removed. The patient returned to the recovery room in stable condition.
== END 2017-05-05 16:27 | disposition home or self-care (01) ==
LOC: M SDC 10:16
PROVIDERS: ATTEND Ophthalmology
DX: H25.9 Unspecified age-related cataract (principal); H57.03 Miosis; J44.9 Chronic obstructive pulmonary disease, unspecified; F17.210 Nicotine dependence, cigarettes, uncomplicated; Z79.51 Long term (current) use of inhaled steroids; Z79.52 Long term (current) use of systemic steroids; F41.9 Anxiety disorder, unspecified; F32.9 Major depressive disorder, single episode, unspecified; Z79.899 Other long term (current) drug therapy; Z88.8 Allergy status to other drugs, medicaments and biological substances; Z91.040 Latex allergy status
CPT/HCPCS: 66982; J2250; J2280; J3010; J3300; V2632

== ENCOUNTER 2017-09-18 12:59 | Inpatient (IN) | payer MEDICARE ==
[2017-09-18] MEDS: methylPREDNISolone INJ 125 MG/2 ML VIAL (J2930) IV ×2 (13:40→21:55)
[2017-09-18 13:48] LABS: BASO # 0.1 10^3/uL (0.0-0.2); BASO % 0.5 % (0.0-1.0); EOS % 0.2 % (0.0-3.0); HEMATOCRIT 41.6 % (36.0-47.0); HEMOGLOBIN 13.4 g/dl (12.0-16.0); IMMATURE GRANULOCYTE # 0.3 10^3/uL (0-0); IMMATURE GRANULOCYTE % 1.8 % (0-0); LYMPH # 1.3 10^3/uL (1.5-4.5); LYMPH % 7.2 % (24.0-44.0); MEAN CORPUSCULAR HEMOGLOBIN 28.7 pg (27.0-33.0); MEAN CORPUSCULAR HGB CONC 32.2 g/dl (32.0-36.5); MEAN CORPUSCULAR VOLUME 89.1 fl (80.0-96.0); MONO # 0.4 10^3/uL (0.0-0.8); MONO % 2.4 % (0.0-5.0); NEUTROPHILS # 15.4 10^3/uL (1.8-7.7); NEUTROPHILS % 87.9 % (36.0-66.0); PLATELET COUNT, AUTOMATED 419 10^3/uL (150-450); RED BLOOD COUNT 4.67 10^6/uL (4.00-5.40); RED CELL DISTRIBUTION WIDTH 13.1 % (11.5-14.5); WHITE BLOOD COUNT 17.6 10^3/uL (4.0-10.0)
[2017-09-18] MEDS: IPRATROPIUM 0.5MG/ALBUTEROL 2.5MG INH SOL UD 3ML (DUONEB)(J7620) NEB ×4 (13:54→19:48)
[2017-09-18 13:58] LABS: ABG BASE EXCESS 9.6 (-2.0-2.0); ABG HCO3 36.1 MEQ/L (22.0-26.0); ABG PARTIAL PRESSURE CO2 55.5 mmHg (35.0-45.0); ABG PARTIAL PRESSURE O2 82.5 mmHg (75.0-100.0); ABG STANDARD HCO3 33.4 MEQ/L (22.0-26.0); ABG TOTAL CO2 37.8 MEQ/L (23.0-31.0); ABG pH (ARTERIAL) 7.431 UNITS (7.350-7.450)
[2017-09-18 13:59] LABS: ABG O2 SATURATION 96.2 % (95.0-99.0)
[2017-09-18 14:07] LABS: ANION GAP 9 MEQ/L (8-16); BLOOD UREA NITROGEN 16 MG/DL (7-18); CALCIUM LEVEL 8.8 MG/DL (8.8-10.2); CARBON DIOXIDE LEVEL 33 MEQ/L (21-32); CHLORIDE LEVEL 98 MEQ/L (98-107); CK-MB VALUE MASS 1.7 NG/ML (0.0-3.6); CPK CREATINE PHOSPHOKINASE 75 U/L (26-192); CREATININE FOR GFR 1.11 MG/DL (0.55-1.02); GLOMERULAR FILTRATION RATE 51.4 (>39); GLUCOSE, FASTING 113 MG/DL (70-100); MB/CK RELATIVE INDEX 2.26 (< OR =4); POTASSIUM SERUM 4.1 MEQ/L (3.5-5.1); SODIUM LEVEL 140 MEQ/L (136-145); TROPONIN I < 0.02 NG/ML (< 0.10)
[2017-09-18 14:08] LABS: ALBUMIN 3.3 GM/DL (3.2-5.2); ALKALINE PHOSPHATASE 103 U/L (45-117); ALT/SGPT 25 U/L (12-78); AST/SGOT 20 U/L (7-37); BILIRUBIN,DIRECT < 0.1 MG/DL (0.0-0.2); BILIRUBIN,TOTAL 0.2 MG/DL (0.2-1.0); NT-PRO BNP 130 PG/ML (<125); TOTAL PROTEIN 6.6 GM/DL (6.4-8.2)
[2017-09-18 14:10] LABS: LACTIC ACID SEPSIS PROTOCOL 2.6 MMOL/L (0.4-2.0)
[2017-09-18 14:17] LABS: INFLUENZA A AMPLIFICATION NEGATIVE (NEGATIVE); INFLUENZA B AMPLIFICATION NEGATIVE (NEGATIVE); INR 0.96; PROTHROMBIN TIME 12.9 SECONDS (12.4-14.5)
[2017-09-18 14:18] LABS: PARTIAL THROMBOPLASTIN TIME 26.6 SECONDS (26.8-37.9)
[2017-09-18] MEDS ORDERED: ISOVUE-370 76% 100ML VIAL (Q9967) As Ordered (14:54)
[2017-09-18] MEDS: ALBUTEROL SULFATE 2.5 MG/0.5 ML INH NEB SOLN NEB (14:55)
[2017-09-18] MEDS ORDERED: ACETAMINOPHEN 325 MG TAB PO (17:15)
[2017-09-18] MEDS ORDERED: ONDANSETRON 4MG/2ML VIAL (J2405) IV (17:30)
[2017-09-18 17:33] LABS: ABG BASE EXCESS 7.6 (-2.0-2.0); ABG HCO3 32.9 MEQ/L (22.0-26.0); ABG O2 SATURATION 98.6 % (95.0-99.0); ABG PARTIAL PRESSURE CO2 48.8 mmHg (35.0-45.0); ABG PARTIAL PRESSURE O2 125.7 mmHg (75.0-100.0); ABG STANDARD HCO3 31.4 MEQ/L (22.0-26.0); ABG TOTAL CO2 34.4 MEQ/L (23.0-31.0); ABG pH (ARTERIAL) 7.447 UNITS (7.350-7.450)
[2017-09-18] MEDS: ALPRAZolam 0.25 MG TAB PO (17:56)
[2017-09-18] MEDS: NS 500 ML IV (17:56)
[2017-09-18 19:25] LABS: LIPASE 540 U/L (73-393)
[2017-09-18] MEDS: NS 1,000 ML IV (19:57)
[2017-09-18] MEDS: PANTOPRAZOLE 40MG INJ (PROTONIX) (C9113) IV (20:03)
[2017-09-18] MEDS: AZITHROMYCIN INJ 500 MG, VIAL MATE ADAPTER 1 EACH in D5W 250 ML IV (20:51)
[2017-09-18] MEDS: **NOTE PATIENT COMMENT** MISC XX (21:00)
[2017-09-18] MEDS ORDERED: ACETYLCYSTEINE 10% 30 ML VIAL PO (21:00)
[2017-09-18] MEDS: ACETYLCYSTEINE 10% 30 ML VIAL INH (21:38)
[2017-09-18] MEDS: VARENICLINE 1 MG TABLET PO (21:52)
[2017-09-18] MEDS: PRIMIDONE 50 MG TAB PO (21:53)
[2017-09-18] MEDS: SIMVASTATIN 40 MG TAB PO (21:53)
[2017-09-18] MEDS: DOCUSATE SODIUM 100 MG CAP PO (21:53)
[2017-09-18] MEDS: cloNIDine 0.1 MG TAB PO (21:53)
[2017-09-18] MEDS: busPIRone 10 MG TAB PO (21:53)
[2017-09-18] MEDS: NORCO, ANEXSIA 5/325MG TABLET (HYDROcodone/ACETAMINOPHEN) PO (21:54)
[2017-09-18] MEDS: SODIUM CHLORIDE 0.9% 1000 ML IV (21:55)
[2017-09-18] MEDS: CEFTRIAXONE SOD 1 GM in APPROPRIATE DILUENT 1 EA IV (21:56)
[2017-09-18] MEDS: HEPARIN SOD (PORCINE) 5000 UNITS/ML VIAL SC (21:56)
[2017-09-18] MEDS: ADVAIR HFA 230/21MCG INHALER INH (23:07)
[2017-09-19] MEDS: ALPRAZolam 0.25 MG TAB PO ×4 (00:12→17:08)
[2017-09-19] MEDS: IPRATROPIUM 0.5MG/ALBUTEROL 2.5MG INH SOL UD 3ML (DUONEB)(J7620) NEB ×6 (01:03→23:31)
[2017-09-19 04:33] LABS: HEMOGLOBIN 11.5 g/dl (12.0-16.0); MEAN CORPUSCULAR HEMOGLOBIN 28.8 pg (27.0-33.0); MEAN CORPUSCULAR HGB CONC 31.9 g/dl (32.0-36.5); PLATELET COUNT, AUTOMATED 346 10^3/uL (150-450); RED CELL DISTRIBUTION WIDTH 13.2 % (11.5-14.5); WHITE BLOOD COUNT 14.7 10^3/uL (4.0-10.0)
[2017-09-19 05:05] LABS: ANION GAP 5 MEQ/L (8-16); BLOOD UREA NITROGEN 14 MG/DL (7-18); CALCIUM LEVEL 8.2 MG/DL (8.8-10.2); CARBON DIOXIDE LEVEL 34 MEQ/L (21-32); CHLORIDE LEVEL 102 MEQ/L (98-107); CREATININE FOR GFR 0.93 MG/DL (0.55-1.02); GLOMERULAR FILTRATION RATE > 60.0 (>39); GLUCOSE, FASTING 184 MG/DL (70-100); POTASSIUM SERUM 4.4 MEQ/L (3.5-5.1); SODIUM LEVEL 141 MEQ/L (136-145)
[2017-09-19 06:03] LABS: ABG BASE EXCESS 7.5 (-2.0-2.0); ABG HCO3 33.6 MEQ/L (22.0-26.0); ABG O2 SATURATION 97.9 % (95.0-99.0); ABG PARTIAL PRESSURE CO2 54.3 mmHg (35.0-45.0); ABG PARTIAL PRESSURE O2 100.7 mmHg (75.0-100.0); ABG STANDARD HCO3 31.4 MEQ/L (22.0-26.0); ABG TOTAL CO2 35.3 MEQ/L (23.0-31.0)
[2017-09-19] MEDS: methylPREDNISolone INJ 125 MG/2 ML VIAL (J2930) IV ×3 (06:04→22:04)
[2017-09-19] MEDS: HEPARIN SOD (PORCINE) 5000 UNITS/ML VIAL SC ×3 (06:04→22:04)
[2017-09-19] MEDS: ACETYLCYSTEINE 10% 30 ML VIAL INH ×3 (07:59→20:51)
[2017-09-19] MEDS: ADVAIR HFA 230/21MCG INHALER INH ×2 (07:59→20:52)
[2017-09-19] MEDS: PRIMIDONE 50 MG TAB PO ×2 (08:19→20:23)
[2017-09-19] MEDS: DOCUSATE SODIUM 100 MG CAP PO ×2 (08:19→20:23)
[2017-09-19] MEDS: VARENICLINE 1 MG TABLET PO ×2 (08:19→20:23)
[2017-09-19] MEDS: cloNIDine 0.1 MG TAB PO ×2 (08:20→20:23)
[2017-09-19] MEDS: busPIRone 10 MG TAB PO ×2 (08:20→20:23)
[2017-09-19] MEDS: PANTOPRAZOLE 40MG INJ (PROTONIX) (C9113) IV (08:21)
[2017-09-19] MEDS: LIDOCAINE 5% (LIDODERM) PATCH TD (08:23)
[2017-09-19] MEDS: NORCO, ANEXSIA 5/325MG TABLET (HYDROcodone/ACETAMINOPHEN) PO ×4 (08:48→22:31)
[2017-09-19] MEDS: PIPERACILLIN/TAZOBACTAM SOD 3.375 GM in APPROPRIATE DILUENT 1 EA IV ×3 (09:00→22:04)
[2017-09-19] MEDS: SODIUM CHLORIDE 0.9% 1000 ML IV (14:00)
[2017-09-19] MEDS: AZITHROMYCIN INJ 500 MG, VIAL MATE ADAPTER 1 EACH in D5W 250 ML IV (20:22)
[2017-09-19] MEDS: SIMVASTATIN 40 MG TAB PO (20:23)
[2017-09-19] MEDS: **NOTE PATIENT COMMENT** MISC XX (21:00)
[2017-09-20] MEDS: ALPRAZolam 0.25 MG TAB PO ×3 (00:06→11:58)
[2017-09-20] MEDS: PIPERACILLIN/TAZOBACTAM SOD 3.375 GM in APPROPRIATE DILUENT 1 EA IV (03:25)
[2017-09-20] MEDS: IPRATROPIUM 0.5MG/ALBUTEROL 2.5MG INH SOL UD 3ML (DUONEB)(J7620) NEB ×6 (03:58→20:31)
[2017-09-20 04:27] LABS: HEMATOCRIT 33.6 % (36.0-47.0); HEMOGLOBIN 10.7 g/dl (12.0-16.0); MEAN CORPUSCULAR HEMOGLOBIN 28.6 pg (27.0-33.0); MEAN CORPUSCULAR HGB CONC 31.8 g/dl (32.0-36.5); MEAN CORPUSCULAR VOLUME 89.8 fl (80.0-96.0); PLATELET COUNT, AUTOMATED 344 10^3/uL (150-450); RED BLOOD COUNT 3.74 10^6/uL (4.00-5.40); RED CELL DISTRIBUTION WIDTH 13.2 % (11.5-14.5); WHITE BLOOD COUNT 20.4 10^3/uL (4.0-10.0)
[2017-09-20 04:46] LABS: ANION GAP 8 MEQ/L (8-16); BLOOD UREA NITROGEN 23 MG/DL (7-18); C REACTIVE PROTEIN QUANTITATIV 0.82 MG/DL (0.00-0.30); CARBON DIOXIDE LEVEL 30 MEQ/L (21-32); CHLORIDE LEVEL 100 MEQ/L (98-107); CREATININE FOR GFR 0.98 MG/DL (0.55-1.02); GLOMERULAR FILTRATION RATE 59.4 (>39); GLUCOSE, FASTING 210 MG/DL (70-100); POTASSIUM SERUM 4.3 MEQ/L (3.5-5.1); SODIUM LEVEL 138 MEQ/L (136-145)
[2017-09-20] MEDS: methylPREDNISolone INJ 125 MG/2 ML VIAL (J2930) IV ×3 (06:12→20:06)
[2017-09-20] MEDS: HEPARIN SOD (PORCINE) 5000 UNITS/ML VIAL SC ×3 (06:12→22:18)
[2017-09-20] MEDS: NORCO, ANEXSIA 5/325MG TABLET (HYDROcodone/ACETAMINOPHEN) PO ×2 (06:13→11:59)
[2017-09-20] MEDS: ADVAIR HFA 230/21MCG INHALER INH ×2 (07:46→20:31)
[2017-09-20] MEDS: ACETYLCYSTEINE 10% 30 ML VIAL INH ×3 (07:46→20:00)
[2017-09-20] MEDS: VARENICLINE 1 MG TABLET PO ×2 (08:07→20:07)
[2017-09-20] MEDS: PRIMIDONE 50 MG TAB PO ×2 (08:07→20:07)
[2017-09-20] MEDS: cloNIDine 0.1 MG TAB PO ×2 (08:08→20:09)
[2017-09-20] MEDS: busPIRone 10 MG TAB PO ×2 (08:08→20:07)
[2017-09-20] MEDS: DOCUSATE SODIUM 100 MG CAP PO ×2 (08:09→20:07)
[2017-09-20] MEDS: LevoFLOXacin IV 500 MG in APPROPRIATE DILUENT 1 EA IV (08:10)
[2017-09-20] MEDS: LIDOCAINE 5% (LIDODERM) PATCH TD (08:10)
[2017-09-20 12:30] LABS: ABG BASE EXCESS 2.8 (-2.0-2.0); ABG HCO3 27.8 MEQ/L (22.0-26.0); ABG TOTAL CO2 29.1 MEQ/L (23.0-31.0); ABG pH (ARTERIAL) 7.418 UNITS (7.350-7.450)
[2017-09-20] MEDS: guaiFENesin ER 600 MG TAB PO ×2 (13:42→20:07)
[2017-09-20] MEDS: MORPHINE 2 MG/ML 1ML SYRINGE IV ×4 (13:44→22:14)
[2017-09-20] MEDS ORDERED: ACETYLCYSTEINE 20% 4 ML VIAL (200MG/ML) INH (14:00)
[2017-09-20] MEDS: LORazepam 2 MG/ML VIAL (J2060) IV ×2 (20:05→22:16)
[2017-09-20] MEDS: SIMVASTATIN 40 MG TAB PO (20:07)
[2017-09-20] MEDS: **NOTE PATIENT COMMENT** MISC XX (21:00)
[2017-09-21] MEDS: methylPREDNISolone INJ 125 MG/2 ML VIAL (J2930) IV ×3 (03:19→16:21)
[2017-09-21] MEDS: MORPHINE 2 MG/ML 1ML SYRINGE IV ×7 (03:22→22:13)
[2017-09-21] MEDS: IPRATROPIUM 0.5MG/ALBUTEROL 2.5MG INH SOL UD 3ML (DUONEB)(J7620) NEB ×7 (03:46→20:26)
[2017-09-21] MEDS: LORazepam 2 MG/ML VIAL (J2060) IV ×5 (05:17→21:01)
[2017-09-21] MEDS: LevoFLOXacin 250 MG TABLET PO (05:20)
[2017-09-21] MEDS: HEPARIN SOD (PORCINE) 5000 UNITS/ML VIAL SC ×2 (05:21→13:20)
[2017-09-21] MEDS: ACETYLCYSTEINE 10% 30 ML VIAL INH ×3 (08:00→20:00)
[2017-09-21] MEDS ORDERED: LevoFLOXacin IV 250 MG in APPROPRIATE DILUENT 1 EA IV (08:00)
[2017-09-21] MEDS: ADVAIR HFA 230/21MCG INHALER INH ×2 (08:38→20:26)
[2017-09-21] MEDS: PRIMIDONE 50 MG TAB PO ×2 (09:11→20:16)
[2017-09-21] MEDS: VARENICLINE 1 MG TABLET PO ×2 (09:11→20:15)
[2017-09-21] MEDS: DOCUSATE SODIUM 100 MG CAP PO ×2 (09:13→20:16)
[2017-09-21] MEDS: busPIRone 10 MG TAB PO ×2 (09:13→20:15)
[2017-09-21] MEDS: LIDOCAINE 5% (LIDODERM) PATCH TD (09:13)
[2017-09-21] MEDS: guaiFENesin ER 600 MG TAB PO ×2 (09:13→20:16)
[2017-09-21] MEDS: cloNIDine 0.1 MG TAB PO ×2 (09:13→20:16)
[2017-09-21] MEDS: ALPRAZolam 0.25 MG TAB PO (20:16)
[2017-09-21] MEDS: **NOTE PATIENT COMMENT** MISC XX (20:19)
[2017-09-22] MEDS: MORPHINE 2 MG/ML 1ML SYRINGE IV ×6 (00:25→21:20)
[2017-09-22] MEDS: IPRATROPIUM 0.5MG/ALBUTEROL 2.5MG INH SOL UD 3ML (DUONEB)(J7620) NEB ×6 (01:15→23:57)
[2017-09-22] MEDS: ALPRAZolam 0.25 MG TAB PO ×2 (07:11→21:18)
[2017-09-22] MEDS: ACETYLCYSTEINE 10% 30 ML VIAL INH ×3 (08:00→20:00)
[2017-09-22] MEDS: DOCUSATE SODIUM 100 MG CAP PO ×2 (08:11→21:18)
[2017-09-22] MEDS: busPIRone 10 MG TAB PO ×2 (08:11→21:18)
[2017-09-22] MEDS: guaiFENesin ER 600 MG TAB PO ×2 (08:11→21:17)
[2017-09-22] MEDS: PRIMIDONE 50 MG TAB PO ×2 (08:12→21:18)
[2017-09-22] MEDS: VARENICLINE 1 MG TABLET PO ×2 (08:12→21:18)
[2017-09-22] MEDS: ADVAIR HFA 230/21MCG INHALER INH ×2 (08:14→21:45)
[2017-09-22] MEDS: cloNIDine 0.1 MG TAB PO ×2 (08:14→21:18)
[2017-09-22] MEDS: LIDOCAINE 5% (LIDODERM) PATCH TD (08:15)
[2017-09-22] MEDS: LORazepam 2 MG/ML VIAL (J2060) IV (17:23)
[2017-09-22] MEDS: **NOTE PATIENT COMMENT** MISC XX (21:00)
[2017-09-23 00:06] LABS: BODY FLUID CULTURE Not Indicated (.); LEGIONELLA ANTIGEN URINE Negative (Negative); ORGANISM ID Not indicated. (.); SPECIMEN SOURCE Urine (.); URINE STREP PNEUMONIAE ANTIGEN Negative (Negative)
[2017-09-23] MEDS: ALPRAZolam 0.25 MG TAB PO ×2 (01:11→08:03)
[2017-09-23] MEDS: MORPHINE 2 MG/ML 1ML SYRINGE IV ×4 (01:12→10:19)
[2017-09-23] MEDS: IPRATROPIUM 0.5MG/ALBUTEROL 2.5MG INH SOL UD 3ML (DUONEB)(J7620) NEB ×2 (04:12→08:00)
[2017-09-23] MEDS: ACETYLCYSTEINE 10% 30 ML VIAL INH (08:00)
[2017-09-23] MEDS: busPIRone 10 MG TAB PO (08:03)
[2017-09-23] MEDS: VARENICLINE 1 MG TABLET PO (08:03)
[2017-09-23] MEDS: PRIMIDONE 50 MG TAB PO (08:03)
[2017-09-23] MEDS: DOCUSATE SODIUM 100 MG CAP PO (08:03)
[2017-09-23] MEDS: LIDOCAINE 5% (LIDODERM) PATCH TD (08:03)
[2017-09-23] MEDS: guaiFENesin ER 600 MG TAB PO (08:03)
[2017-09-23] MEDS: ADVAIR HFA 230/21MCG INHALER INH (08:05)
[2017-09-23] MEDS: cloNIDine 0.1 MG TAB PO (08:06)
[2017-09-23] MEDS: LORazepam 2 MG/ML VIAL (J2060) IV (10:18)
== END 2017-09-23 10:27 | disposition hospice, home (50) | DRG 871 ==
LOC: M MSPAV 09-22 00:44 → M ED 12:59 → M ED INP 16:37 → M ICU 20:19
DX: A41.9 Sepsis, unspecified organism (principal); J96.22 Acute and chronic respiratory failure with hypercapnia; J18.9 Pneumonia, unspecified organism; E87.2 Acidosis; N17.9 Acute kidney failure, unspecified; J44.1 Chronic obstructive pulmonary disease with (acute) exacerbation; Z66 Do not resuscitate; Z51.5 Encounter for palliative care; E78.5 Hyperlipidemia, unspecified; I10 Essential (primary) hypertension; Z87.891 Personal history of nicotine dependence; Z91.040 Latex allergy status; Z88.5 Allergy status to narcotic agent; Z79.899 Other long term (current) drug therapy; Z99.81 Dependence on supplemental oxygen; Z90.710 Acquired absence of both cervix and uterus; M54.6 Pain in thoracic spine